=== PATIENT | female | born 1950 ===

== ENCOUNTER 2017-05-24 00:27 | Emergency (ER) | payer MEDICAID ==
[2017-05-24 00:27] VITALS: BMI 29.0
[2017-05-24 00:48] VITALS: BP 163/78; PULSE 82; RESP 16; TEMP 98.6; O2SAT 100
--- NOTE | 2017-05-24 02:53 | ED PDOC ---
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 Pt reports walked more than usual yesterday and developed left leg pain and took indomethacin. Reports she developed nausea and dizziness after taking the medication. Denies vomiting, LOC , or blurry vision. Denies chest pain, dyspnea, abdominal pain or complaints. Denies any dizziness or nausea now. PMD: Dr. Gopal Bingham ( last visit 1 month ago) <Sultan Janet - Last Filed: 05/24/17 05:36> <Natasha Lafleur - Last Filed: 05/24/17 06:40> Time Seen by Provider: 05/24/17 01:44 Chief Complaint (Nursing): Dizziness/Lightheaded Supervising Attending Note - Supervising Attending Note The Documented history was done by the: Physician Delivery Man, Attending Physician The documented physical exam was done by the: Physician Delivery Man, Attending Physician The documented procedures were done by the: Physician Delivery Man, Attending Physician - Attestation: I have personally seen and examined this patient.: Yes I have fully participated in the care of the patient.: Yes I have reviewed all pertinent clinical information: Yes <Natasha Lafleur - Last Filed: 05/24/17 06:40> Past Medical History Vital Signs: Last Vital Signs Temp 98.6 F 05/24/17 00:45 Pulse 82 05/24/17 00:45 Resp 16 05/24/17 00:45 BP 163/78 H 05/24/17 00:45 Pulse Ox 100 05/24/17 00:45 - Medical History PMH: Arthritis, HTN - Surgical History Other surgeries: Varicose vein surgery in 12/2016 - Family History Family History: States: Hypertension (mother) - Social History Current smoker - smoking cessation education provided: No Alcohol: None Drugs: Denies - Immunization History Hx Tetanus Toxoid Vaccination: Yes Hx Influenza Vaccination: Yes Hx Pneumococcal Vaccination: Yes <Sultan Janet - Last Filed: 05/24/17 05:36> Reviewed: Historical Data, Nursing Documentation, Vital Signs Vital Signs: Last Vital Signs Temp 98.6 F 05/24/17 00:45 Pulse 82 05/24/17 00:45 Resp 16 05/24/17 00:45 BP 163/78 H 05/24/17 00:45 Pulse Ox 100 05/24/17 02:59 <Natasha Lafleur - Last Filed: 05/24/17 06:40> - Home Medications Home Medications: Ambulatory Orders Medication Instructions Recorded Diclofenac 04/25/14 Naprosyn 04/25/14 oxyCODONE/Acetaminophen [Percocet 1 tab PO QID PRN #20 tab 04/25/14 5/325 mg Tab] - Allergies Allergies/Adverse Reactions: Allergies Allergy/AdvReac Type Severity Reaction Status Date / Time ciprofloxacin [From Cipro] Allergy RASH Verified 05/24/17 00:44 Review of Systems Constitutional: Negative for: Fever, Chills, Weakness Eyes: Negative for: Vision Change Cardiovascular: Negative for: Chest Pain, Palpitations Respiratory: Negative for: Cough, Shortness of Breath Gastrointestinal: Negative for: Vomiting, Abdominal Pain, Diarrhea Genitourinary Female: Negative for: Dysuria Neurological: Negative for: Weakness, Change in Speech, Confusion, Headache <Sultan Janet - Last Filed: 05/24/17 05:36> ROS Statement: Except As Marked, All Systems Reviewed And Found Negative <Natasha Lafleur A - Last Filed: 05/24/17 06:40> Physical Exam - Physical Exam Appears: Positive for: No Acute Distress Eye Exam: Positive for: EOMI, PERRL Neck: Positive for: Normal Cardiovascular/Chest: Positive for: Regular Rate, Rhythm. Negative for: Murmur Respiratory: Positive for: Normal Breath Sounds Gastrointestinal/Abdominal: Positive for: Bowel Sounds, Soft. Negative for: Tenderness Extremity: Positive for: Normal ROM, Other (prominent varicose veins on right lower extremity). Negative for: Calf Tenderness Neurologic/Psych: Positive for: Alert, Oriented <Sultan Janet - Last Filed: 05/24/17 05:36> - Laboratory Results Result Diagrams: 05/24/17 03:40 05/24/17 03:40 - ECG O2 Sat by Pulse Oximetry: 100 - Progress ED Course And Treament: Assessment: 66 yo female hx osteoporosis, HTN, and PAD presents to ED for dizziness and nausea ( now resolved). Plan: EKG BMP CBC TROPONIN I UA Case d/w ED physician Dr. Lafleur re-evaluation at 5:10 am on 05/24/17: Initial work up is WNL. Pt reports no dizziness or nausea since coming to ED. Pt is medically stable to discharge home. Pt was advised to f/u with PMD in 2-3 days. Pt was advised to return to ED if dizziness returns or any significant worsening conditions. Pt and her daughter are in agreement with the plan. 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 Lafleur <Sultan Janet - Last Filed: 05/24/17 05:36> - Laboratory Results Result Diagrams: 05/24/17 03:40 05/24/17 03:40 <Natasha Lafleur - Last Filed: 05/24/17 06:40> Disposition <Sultan Janet - Last Filed: 05/24/17 05:36> - Patient ED Disposition Is Patient to be Admitted: No Doctor Will See Patient In The: Office Counseled Patient/Family Regarding: Studies Performed, Diagnosis, Need For Followup - Disposition Disposition: Routine/Home Disposition Time: 05:19 <Natasha Lafleur - Last Filed: 05/24/17 06:40> - Clinical Impression Clinical Impression: Dizziness - Disposition Referrals: Gopal Bingham MD [Medical Doctor] - Condition: GOOD Additional Instructions: Take your medications as instructed. Return for worsening. Follow up with your PCP in 2-3 days. Instructions: Dizziness (ED)
[2017-05-24 03:49] LABS: BASO % 0.6 % (0.0-2.0); EOS # 0.6 K/uL (0.0-0.7); EOS % 10.7 % (0.0-4.0); HEMOGLOBIN 12.9 g/dL (12.0-16.0); LYMPH # 1.7 K/uL (1.0-4.3); LYMPH % 30.4 % (20.0-40.0); MEAN CELL VOLUME 85.3 fl (81.0-99.0); MEAN CORPUSCULAR HEMOGLOBIN 28.9 pg (27.0-31.0); MEAN CORPUSCULAR HGB CONC 33.9 g/dL (33.0-37.0); MEAN PLATELET VOLUME 8.9 fl (7.2-11.7); MONO # 0.5 K/uL (0.0-0.8); NEUT # 2.9 K/uL (1.8-7.0); NEUT % 50.3 % (50.0-75.0); NRBC % 0.1 % (0.0-0.0); RBC 4.46 Mil/uL (3.80-5.20); RED CELL DISTRIBUTION WIDTH 15.2 % (11.5-14.5); WHITE BLOOD COUNT 5.7 K/uL (4.8-10.8)
[2017-05-24 03:58] LABS: CALCIUM 8.6 mg/dL (8.4-10.2); GFR AFRICAN-AMERICAN > 60; GFR NON-AFRICAN AMERICAN > 60
[2017-05-24 04:08] LABS: BLOOD UREA NITROGEN 13 mg/dl (7-17)
[2017-05-24 04:48] LABS: SQUAMOUS EPITHIAL 1 /hpf (0-5); URINE BACTERIA RARE (<OCC); URINE BILIRUBIN NEGATIVE (NEGATIVE); URINE BLOOD NEGATIVE (NEGATIVE); URINE CLARITY CLEAR (Clear); URINE COLOR YELLOW (YELLOW); URINE GLUCOSE (UA) NEG (Normal); URINE LEUKOCYTE ESTERASE NEG Leu/uL (Negative); URINE NITRATE NEGATIVE (NEGATIVE); URINE PROTEIN NEGATIVE (NEGATIVE); URINE UROBILINOGEN 0.2-1.0 mg/dL (0.2-1.0)
== END 2017-05-24 05:53 | disposition home or self-care (01) ==
LOC: H.ER 00:27
DX: R42 Dizziness and giddiness (principal); I10 Essential (primary) hypertension